=== PATIENT | female | born 2000 | race American Indian/Alaskan Native ===

== ENCOUNTER 2021-03-31 16:12 | Emergency (ER) | payer SELFPAY ==
[2021-03-31 16:19] VITALS: BP 130/76
--- NOTE | 2021-03-31 16:50 | Emergency Department Report ---
ED General Adult HPI - General Chief complaint: Vaginal Bleeding Stated complaint: POSS MISCARRIAGE Time Seen by Provider: 03/31/21 16:22 Source: patient Mode of arrival: Ambulatory Limitations: No Limitations - History of Present Illness Initial comments: 21-year-old -Burmese female patient presents with complaints of vaginal bleeding and possible miscarriage today. She states lower abdominal cramping that feels like menstrual cramps. She is not currently following with an TECHNICAL CLERK. Patient also denies any dysuria/hematuria but admits to urinary frequency. She also denies any vaginal discharge or dyspareunia. She states her last menstrual cycle was 2 weeks ago. No other past medical history per patient. - Related Data Previous Rx's Medication Instructions Recorded Last Taken Type Sulfamethoxazole/Trimethoprim 1 each PO BID 5 Days #10 tablet 03/31/21 Unknown Rx [Bactrim DS TAB] Allergies Allergy/AdvReac Type Severity Reaction Status Date / Time No Known Allergies Allergy Verified 03/31/21 16:16 ED Review of Systems ROS: Stated complaint: POSS MISCARRIAGE Other details as noted in HPI Constitutional: denies: chills, fever Respiratory: denies: cough, shortness of breath Cardiovascular: denies: chest pain Gastrointestinal: denies: nausea, vomiting, diarrhea, constipation Genitourinary: frequency, abnormal menses. denies: urgency, dysuria, hematuria, discharge Musculoskeletal: denies: back pain Skin: denies: lesions, change in color Neurological: denies: headache Hematological/Lymphatic: denies: easy bleeding, easy bruising ED Past Medical Hx - Past Medical History Previous Medical History?: No - Surgical History Past Surgical History?: No - Medications Home Medications: Home Medications Medication Instructions Recorded Confirmed Last Taken Type Sulfamethoxazole/Trimethoprim 1 each PO BID 5 Days #10 tablet 03/31/21 Unknown Rx [Bactrim DS TAB] ED Physical Exam - General Limitations: No Limitations General appearance: alert, in no apparent distress - Head Head exam: Present: atraumatic, normocephalic - Eye Eye exam: Present: normal appearance - Respiratory Respiratory exam: Present: normal lung sounds bilaterally. Absent: respiratory distress - Cardiovascular Cardiovascular Exam: Present: regular rate, normal rhythm - GI/Abdominal GI/Abdominal exam: Present: soft, normal bowel sounds. Absent: distended, tenderness, guarding, rebound, rigid - Back Exam Back exam: Absent: CVA tenderness (R), CVA tenderness (L) - Neurological Exam Neurological exam: Present: alert, oriented X3, normal gait - Psychiatric Psychiatric exam: Present: normal affect, normal mood - Skin Skin exam: Present: warm, dry, intact, normal color. Absent: rash ED Course Vital Signs 03/31/21 03/31/21 16:16 16:58 Temperature 98 F Pulse Rate 85 Respiratory 16 18 Rate Blood Pressure 130/76 [Left] O2 Sat by Pulse 100 100 Oximetry ED Medical Decision Making - Lab Data Result diagrams: 03/31/21 16:30 03/31/21 16:30 Lab Results 03/31/21 03/31/21 03/31/21 Range/Units 16:30 16:30 16:30 WBC 4.0 L (4.5-11.0) K/mm3 RBC 4.28 (3.65-5.03) M/mm3 Hgb 11.1 (10.1-14.3) gm/dl Hct 34.6 (30.3-42.9) % MCV 81 (79-97) fl MCH 26 L (28-32) pg MCHC 32 (30-34) % RDW 14.2 (13.2-15.2) % Plt Count 270 (140-440) K/mm3 Lymph % (Auto) 33.7 (13.4-35.0) % [place] % (Auto) 7.0 (0.0-7.3) % Eos % (Auto) 0.9 (0.0-4.3) % Baso % (Auto) 0.5 (0.0-1.8) % Lymph # (Auto) 1.4 (1.2-5.4) K/mm3 [place] # (Auto) 0.3 (0.0-0.8) K/mm3 Eos # (Auto) 0.0 (0.0-0.4) K/mm3 Baso # (Auto) 0.0 (0.0-0.1) K/mm3 Seg Neutrophils % 57.9 (40.0-70.0) % Seg Neutrophils # 2.3 (1.8-7.7) K/mm3 Sodium 141 (137-145) mmol/L Potassium 3.6 (3.6-5.0) mmol/L Chloride 106.7 (98-107) mmol/L Carbon Dioxide 23 (22-30) mmol/L Anion Gap 15 mmol/L BUN 15 (7-17) mg/dL Creatinine 0.6 (0.6-1.2) mg/dL Estimated GFR > 60 ml/min BUN/Creatinine Ratio 25 % Glucose 81 (65-100) mg/dL Calcium 8.9 (8.4-10.2) mg/dL Total Bilirubin 0.20 (0.1-1.2) mg/dL AST 20 (5-40) units/L ALT 11 (7-56) units/L Alkaline Phosphatase 83 (35-129) units/L Total Protein 7.6 (6.3-8.2) g/dL Albumin 3.9 (3.9-5) g/dL Albumin/Globulin Ratio 1.1 % HCG, Quant < 2 (0-4) mIU/mL Urine Color (Yellow) Urine Turbidity (Clear) Urine pH (5.0-7.0) Ur Specific [place] (1.003-1.030) Urine Protein (Negative) mg/dL Urine Glucose (UA) (Negative) mg/dL Urine Ketones (Negative) mg/dL Urine Blood (Negative) Urine Nitrite (Negative) Urine Bilirubin (Negative) Urine Urobilinogen (<2.0) mg/dL Ur Leukocyte Esterase (Negative) Urine WBC (Auto) (0.0-6.0) /HPF Urine RBC (Auto) (0.0-6.0) /HPF U Epithel Cells (Auto) (0-13.0) /HPF Urine Mucus /HPF Blood Type 03/31/21 03/31/21 Range/Units 16:30 16:42 WBC (4.5-11.0) K/mm3 RBC (3.65-5.03) M/mm3 Hgb (10.1-14.3) gm/dl Hct (30.3-42.9) % MCV (79-97) fl MCH (28-32) pg MCHC (30-34) % RDW (13.2-15.2) % Plt Count (140-440) K/mm3 Lymph % (Auto) (13.4-35.0) % [place] % (Auto) (0.0-7.3) % Eos % (Auto) (0.0-4.3) % Baso % (Auto) (0.0-1.8) % Lymph # (Auto) (1.2-5.4) K/mm3 [place] # (Auto) (0.0-0.8) K/mm3 Eos # (Auto) (0.0-0.4) K/mm3 Baso # (Auto) (0.0-0.1) K/mm3 Seg Neutrophils % (40.0-70.0) % Seg Neutrophils # (1.8-7.7) K/mm3 Sodium (137-145) mmol/L Potassium (3.6-5.0) mmol/L Chloride (98-107) mmol/L Carbon Dioxide (22-30) mmol/L Anion Gap mmol/L BUN (7-17) mg/dL Creatinine (0.6-1.2) mg/dL Estimated GFR ml/min BUN/Creatinine Ratio % Glucose (65-100) mg/dL Calcium (8.4-10.2) mg/dL Total Bilirubin (0.1-1.2) mg/dL AST (5-40) units/L ALT (7-56) units/L Alkaline Phosphatase (35-129) units/L Total Protein (6.3-8.2) g/dL Albumin (3.9-5) g/dL Albumin/Globulin Ratio % HCG, Quant (0-4) mIU/mL Urine Color Yellow (Yellow) Urine Turbidity Clear (Clear) Urine pH 5.0 (5.0-7.0) Ur Specific [place] 1.030 (1.003-1.030) Urine Protein <15 mg/dl (Negative) mg/dL Urine Glucose (UA) Neg (Negative) mg/dL Urine Ketones Neg (Negative) mg/dL Urine Blood Mod (Negative) Urine Nitrite Neg (Negative) Urine Bilirubin Neg (Negative) Urine Urobilinogen < 2.0 (<2.0) mg/dL Ur Leukocyte Esterase Neg (Negative) Urine WBC (Auto) 11.0 H (0.0-6.0) /HPF Urine RBC (Auto) 6.0 (0.0-6.0) /HPF U Epithel Cells (Auto) < 1.0 (0-13.0) /HPF Urine Mucus 3+ /HPF Blood Type O POSITIVE - Radiology Data Radiology results: report reviewed - Medical Decision Making 21-year-old -Burmese female patient presents with complaints of vaginal bleeding and possible miscarriage today. She states lower abdominal cramping that feels like menstrual cramps. She is not currently following with an TECHNICAL CLERK. Patient also denies any dysuria/hematuria but admits to urinary frequency. She also denies any vaginal discharge or dyspareunia. She states her last menstrual cycle was 2 weeks ago. No other past medical history per patient. UA shows UTI. Beta-hCG is negative. No other acute abnormalities noted on labs. Recommend patient follows up with TECHNICAL CLERK for further evaluation of abnormal menstrual cycles. Referral provided. Patient is well-appearing, her vitals are normal, she is stable for discharge home. Bactrim given for UTI. Strict return precautions were discussed in detail with patient verbalizes understanding. Critical care attestation.: If time is entered above; I have spent that time in minutes in the direct care of this critically ill patient, excluding procedure time. ED Disposition Clinical Impression: UTI (urinary tract infection), Abnormal vaginal bleeding Disposition: 01 HOME / SELF CARE / HOMELESS Is pt being admited?: No Condition: Stable Instructions: Urinary Tract Infection, Adult, [id number], Dysfunctional Uterine Bleeding Prescriptions: Sulfamethoxazole/Trimethoprim [Bactrim DS TAB] 1 each PO BID 5 Days #10 tablet Referrals: [facility] [Provider Group] - 3-5 Days [facility] [Provider Group] - 3-5 Days
[2021-03-31 16:56] LABS: Basophils % (Auto) 0.5 % (0.0-1.8); Eosinophils % (Auto) 0.9 % (0.0-4.3); Hematocrit 34.6 % (30.3-42.9); Hemoglobin 11.1 gm/dl (10.1-14.3); Lymphocytes # (Auto) 1.4 K/mm3 (1.2-5.4); Lymphocytes % (Auto) 33.7 % (13.4-35.0); Mean Corpuscular HGB Conc 32 % (30-34); Mean Corpuscular Volume 81 fl (79-97); Monocytes # (Auto) 0.3 K/mm3 (0.0-0.8); Platelet Count 270 K/mm3 (140-440); Red Blood Count 4.28 M/mm3 (3.65-5.03); Red Cell Distribution Width 14.2 % (13.2-15.2)
[2021-03-31 17:02] LABS: Bilirubin,Urine NEG (Negative); Blood,Urine MOD (Negative); Color,Urine Yellow (Yellow); Mucus,Urine 3+ /HPF; Protein,Urine <15 mg/dL mg/dL (Negative); Urobilinogen,Urine < 2.0 mg/dL (<2.0)
[2021-03-31 17:24] LABS: Alanine Aminotransferase 11 units/L (7-56); Albumin 3.9 g/dL (3.9-5); BUN/Creatinine Ratio 25; Blood Urea Nitrogen 15 mg/dL (7-17); Calcium 8.9 mg/dL (8.4-10.2); Hemolysis Index 3
== END 2021-03-31 18:11 | disposition home or self-care (01) ==
LOC: ED 16:12
DX: N39.0 Urinary tract infection, site not specified (principal); N93.9 Abnormal uterine and vaginal bleeding, unspecified
CPT/HCPCS: 36415; 80053; 81001; 84702; 85025; 86900; 86901; 87086; 99283

== ENCOUNTER 2021-08-30 00:03 | Emergency (ER) | payer SELFPAY ==
[2021-08-30] MEDS ORDERED: ZIPRASIDONE MESYLATE 20 MG VIAL IM ONE ×2 (00:10→08:53)
[2021-08-30 01:16] LABS: HCG Qualitative,Urine Negative (Negative)
[2021-08-30 01:22] LABS: Bilirubin,Urine NEG (Negative); Blood,Urine LG (Negative); Color,Urine Amber (Yellow); Hyaline Casts,Urine 9 /LPF; Mucus,Urine 3+ /HPF
[2021-08-30 01:23] LABS: Amphetamine Screen,Urine PRESUMPTIVE POSITIVE; Benzodiazepines Screen,Urine PRESUMPTIVE NEGATIVE; Cannabinoid Screen,Urine PRESUMPTIVE NEGATIVE; Cocaine Screen,Urine PRESUMPTIVE NEGATIVE; Methadone Screen,Urine PRESUMPTIVE NEGATIVE; Opiate Screen,Urine PRESUMPTIVE NEGATIVE
[2021-08-30 01:24] LABS: RBC,Urine > 182.0 /HPF (0.0-6.0)
[2021-08-30 01:43] LABS: Basophils % (Auto) 0.5 % (0.0-1.8); Eosinophils % (Auto) 0.8 % (0.0-4.3); Hematocrit 36.8 % (30.3-42.9); Hemoglobin 11.5 gm/dl (10.1-14.3); Lymphocytes # (Auto) 0.9 K/mm3 (1.2-5.4); Lymphocytes % (Auto) 23.9 % (13.4-35.0); Mean Corpuscular HGB Conc 31 % (30-34); Mean Corpuscular Volume 81 fl (79-97); Monocytes # (Auto) 0.3 K/mm3 (0.0-0.8); Monocytes % (Auto) 7.6 % (0.0-7.3); Platelet Count 304 K/mm3 (140-440); Red Blood Count 4.58 M/mm3 (3.65-5.03); Red Cell Distribution Width 13.6 % (13.2-15.2)
[2021-08-30 01:55] LABS: Alanine Aminotransferase 12 units/L (7-56); Albumin 3.8 g/dL (3.9-5); BUN/Creatinine Ratio 17; Blood Urea Nitrogen 19 mg/dL (7-17); Calcium 8.9 mg/dL (8.4-10.2); Hemolysis Index 22
--- NOTE | 2021-08-30 05:16 | Emergency Department Report ---
ED Psych HPI - General Chief Complaint: Overdose Stated Complaint: SUICIDAL, ETOH Time Seen by Provider: 08/30/21 00:10 Source: patient, police, EMS Mode of arrival: Stretcher Limitations: Other (Psychiatric disturbance) - History of Present Illness Initial Comments: Patient is a 21-year-old female brought in by EMS for evaluation of accidental overdose of unknown drug in pill form. On arrival she appears to be in a manic state, shouting and screaming profanities with bizarre behavior. -: unknown Associated Psychiatric Symptoms: delusions Quality: constant Improves With: none Worsens With: none Context: other (Suspected overdose of ibuprofen and ecstasy) Treatments Prior to Arrival: none If Self Harm: admits thoughts of - Related Data Previous Rx's Medication Instructions Recorded Last Taken Type Sulfamethoxazole/Trimethoprim 1 each PO BID 5 Days #10 tablet 03/31/21 Unknown Rx [Bactrim DS TAB] Allergies Allergy/AdvReac Type Severity Reaction Status Date / Time No Known Allergies Allergy Verified 03/31/21 16:16 ED Review of Systems ROS: Stated complaint: SUICIDAL, ETOH Other details as noted in HPI Comment: Unobtainable due to pts medical conditions ED Past Medical Hx - Past Medical History Previous Medical History?: No - Surgical History Past Surgical History?: No - Social History Smoking Status: Current Every Day Smoker Substance Use Type: Other - Medications Home Medications: Home Medications Medication Instructions Recorded Confirmed Last Taken Type Sulfamethoxazole/Trimethoprim 1 each PO BID 5 Days #10 tablet 03/31/21 Unknown Rx [Bactrim DS TAB] ED Physical Exam - General Limitations: Altered Mental Status (Acute psychosis) - Head Head exam: Present: atraumatic, normocephalic - Eye Eye exam: Present: normal appearance, EOMI - Respiratory Respiratory exam: Present: normal lung sounds bilaterally. Absent: respiratory distress - Cardiovascular Cardiovascular Exam: Present: regular rate, normal rhythm. Absent: systolic murmur, diastolic murmur, rubs, gallop - GI/Abdominal GI/Abdominal exam: Present: soft. Absent: distended, tenderness - Rectal Rectal exam: Present: deferred - Extremities Exam Extremities exam: Present: normal inspection, full ROM - Neurological Exam Neurological exam: Present: alert, oriented X3, CN II-XII intact - Psychiatric Psychiatric exam: Present: manic - Skin Skin exam: Present: warm, dry, intact, normal color ED Course Vital Signs 04/13/22 04/13/22 04/13/22 00:05 00:08 02:39 Temperature 98.2 F Pulse Rate 72 72 Respiratory 16 18 18 Rate Blood Pressure 128/89 122/76 [Right] O2 Sat by Pulse 98 100 99 Oximetry ED Medical Decision Making - Lab Data Result diagrams: 08/30/21 01:22 08/30/21 01:22 - Medical Decision Making Patient given 20 mg of IM Geodon for agitation. Labs obtained. Patient medically cleared. Mental health assessment pending. Critical care attestation.: If time is entered above; I have spent that time in minutes in the direct care of this critically ill patient, excluding procedure time. ED Disposition Condition: Stable Referrals: PRIMARY CARE, [Primary Care Provider] - 3-5 Days
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
[2021-08-30] MEDS ORDERED: ZIPRASIDONE MESYLATE 20 MG VIAL IM PRN (12:35)
--- NOTE | 2021-08-30 12:35 | Consultation ---
History of Present Illness - Reason for Consult Consult date: 08/30/21 Reason for consult: accidental overdose - History of Present Psychiatric Illness The patient was seen today. She was brought in for evaluation of an accidental overdose. Staff says she became bizarre and starting screaming and shouting profanities. The patient was medicated with prn Geodon. I was unable to arouse the patient enough to engage her in the interview. PAST PSYCHIATRIC HISTORY: Unable to assess PAST MEDICAL HISTORY: None reported or document Family Psychiatric History: None reported or documented SOCIAL HISTORY Unable to assess REVIEW OF SYSTEMS Unable to assess MENTAL STATUS EXAMINATION Unable to assess Assessment and Plan (1) Overdose Treatment Plan 1013 Geodon 20mg IM q6h prn agitation Trazodone 50mg po qhs Sitter: refer to medical Medical: per primary Disposition: recommend acute psychiatric inpatient treatment Will follow. Thanks Case staffed with Dr. Palacios Medications and Allergies Allergies Allergy/AdvReac Type Severity Reaction Status Date / Time No Known Allergies Allergy Verified 03/31/21 16:16 Home Medications Medication Instructions Recorded Confirmed Last Taken Type Sulfamethoxazole/Trimethoprim 1 each PO BID 5 Days #10 tablet 03/31/21 Unknown Rx [Bactrim DS TAB] Active Meds: Active Medications Trazodone HCl (Trazodone 50 Mg Tab) 50 mg PO QHS [facility] Mental Status Exam - Vital signs Last Vital Signs Temp 98.2 F 08/30/21 00:05 Pulse 70 08/30/21 06:23 Resp 20 08/30/21 06:23 BP 125/76 08/30/21 06:23 Pulse Ox 99 08/30/21 06:23 Results Result Diagrams: 08/30/21 01:22 08/30/21 01:22 Abnormal lab results 08/30/21 08/30/21 08/30/21 Range/Units 00:51 01:22 01:22 WBC 3.7 L (4.5-11.0) K/mm3 MCH 25 L (28-32) pg [place] % (Auto) 7.6 H (0.0-7.3) % Lymph # (Auto) 0.9 L (1.2-5.4) K/mm3 Potassium 3.5 L (3.6-5.0) mmol/L Carbon Dioxide 20 L (22-30) mmol/L BUN 19 H (7-17) mg/dL Albumin 3.8 L (3.9-5) g/dL Ur Specific [place] 1.031 H (1.003-1.030) Salicylates (2.8-20.0) mg/dL Acetaminophen (10.0-30.0) ug/mL 08/30/21 08/30/21 Range/Units 01:22 01:22 WBC (4.5-11.0) K/mm3 MCH (28-32) pg [place] % (Auto) (0.0-7.3) % Lymph # (Auto) (1.2-5.4) K/mm3 Potassium (3.6-5.0) mmol/L Carbon Dioxide (22-30) mmol/L BUN (7-17) mg/dL Albumin (3.9-5) g/dL Ur Specific [place] (1.003-1.030) Salicylates < 0.3 L (2.8-20.0) mg/dL Acetaminophen 5.0 L (10.0-30.0) ug/mL All other labs normal.
[2021-08-30] MEDS ORDERED: SERTRALINE 25 MG TAB PO SCH (13:00)
[2021-08-30] MEDS ORDERED: PALIPERIDONE PALMITATE 156 MG/ML INJ IM ONE (13:16)
[2021-08-30] MEDS: traZODone 50 MG TAB PO SCH (23:34)
--- NOTE | 2021-08-31 10:04 | Progress Note ---
Subjective - Reason for Consult Consult date: 08/31/21 Reason for consult: psychosis - Chief Complaint Chief complaint: Per nurse note: Pt sitting in the room, taking her marie out, putting it around her naked and pulling it. Pt took her socks off and did the same thing right before shift change. Geodon 20mg IM given. pt tolerated well. Will cont. to monitor. The patient was seen today. She is in the seclusion room, naked. She slightly arouses but I could not engage her in the evaluation. REVIEW OF SYSTEMS Unable to assess MENTAL STATUS EXAMINATION Unable to assess Assessment and Plan (1) Overdose Treatment Plan [address] 250mg po BID Olanzapine 7.5mg po BID Geodon 20mg IM q6h prn agitation Trazodone 50mg po qhs Sitter: refer to medical Medical: per primary Disposition: recommend acute psychiatric inpatient treatment Will follow. Thanks Case staffed with Dr. Palacios Mental Status Exam - Vital signs Last Vital Signs Temp 98.2 F 08/30/21 00:05 Pulse 70 08/30/21 06:23 Resp 20 08/30/21 06:23 BP 125/76 08/30/21 06:23 Pulse Ox 99 08/30/21 06:23
[2021-08-31] MEDS: DIVALPROEX DR 250 MG TAB PO SCH ×2 (18:13→23:00)
--- NOTE | 2021-08-31 18:46 | Emergency Department Report ---
Blank Doc - Documentation Documentation: Mr Parisi is a 21-year-old male admitted to the ER with acute OD and has been seen and evaluated by psychiatrist who recommended acute impatient treatment. In the meantime patient it to be continued on her home medication. And currently deemed to be 1013. The plan is to continue patient psychiatry medication recommendation. No new symptoms reported today.
[2021-08-31] MEDS: traZODone 50 MG TAB PO SCH (23:00)
--- NOTE | 2021-09-01 11:20 | Progress Note ---
Subjective - Reason for Consult Consult date: 09/01/21 Reason for consult: overdose - Chief Complaint Chief complaint: The patient was seen today. She reports doing well. She is alert and oriented x3. The patient denies any current/homicidal suicidal ideation and denies hallucinations. REVIEW OF SYSTEMS Unable to assess MENTAL STATUS EXAMINATION Unable to assess Assessment and Plan (1) Overdose Treatment Plan [address] 250mg po BID Olanzapine 7.5mg po BID Geodon 20mg IM q6h prn agitation Trazodone 50mg po qhs Sitter: refer to medical Medical: per primary Disposition: recommend acute psychiatric inpatient treatment Will follow. Thanks Case staffed with Dr. Palacios Mental Status Exam - Vital signs Last Vital Signs Temp 98.2 F 08/30/21 00:05 Pulse 70 08/30/21 06:23 Resp 20 08/30/21 06:23 BP 125/76 08/30/21 06:23 Pulse Ox 98 09/01/21 05:59
--- NOTE | 2021-09-01 12:19 | Event Note ---
Date: 09/01/21 S: No events reported overnight O: Vital Signs - 8 hr 09/01/21 05:59 O2 Sat by Pulse 98 Oximetry Vital Signs - 8 hr 09/01/21 05:59 O2 Sat by Pulse 98 Oximetry A: Overdose P: 1013/awaiting inpatient psych
[2021-09-01 17:23] VITALS: BP 118/70
== END 2021-09-01 17:23 ==
LOC: EEVIPCON 00:03 → ED 00:03
DX: T50.901A Poisoning by unspecified drugs, medicaments and biological substances, accidental (unintentional), initial encounter (principal); F17.200 Nicotine dependence, unspecified, uncomplicated; Y92.89 Other specified places as the place of occurrence of the external cause; Z20.822 Contact with and (suspected) exposure to COVID-19
CPT/HCPCS: 36415; 80053; 80307; 81001; 81025; 84443; 85025; 96372; 99284; J3486; U0003; 80320; G0480; J2426